=== PATIENT | female | born 1975 | race Caucasian/White ===

== ENCOUNTER 2019-06-14 07:19 | Emergency (ER) | payer BC ==
--- OUTSIDE RECORDS SUMMARY | 2019-06-14 07:29 | XMS REPORT | Continuity of Care Document ---
:1975 External Reference #:[id number] Author Name Jake Castillo M.D. (transmitted by agent of provider Nori Parra) Address [address] [place] [address] Care Team Providers Name Role Phone Obed Garcia MD - Family Medicine Care Team Information Chro Chavo Macias MD - Gastroenterology Care Team Information Chro [phone] Problems Active Problems Provider Date Status migrainosus Michael Sanders MD Onset: 07/10/2015 Migraine Michael Sanders MD Onset: 11/23/2015 Migraine without aura, not refractory Michael Sanders MD Onset: 04/21/2016 Social History Type Date Description Comments Sex Unknown Tobacco Use Start: Unknown Never Smoked Cigarettes Smoking Status Reviewed: 05/02/19 Never Smoked Cigarettes ETOH Use Rarely consumes alcohol Tobacco Use Start: Unknown Patient has never smoked Recreational Drug Use Denies Drug Use Exercise Type/Frequency Exercises rarely Allergies, Adverse Reactions, Alerts Active Allergies Reaction Severity Comments Date Biaxin Urticaria Severe 06/10/2014 Medications Active Medications SIG Qnty Indications Ordering Date Provider Voltaren apply 2 grams twice 200units Jake Castillo, 05/02/2019 1% Gel daily as needed for M.D. pain to the right wrist or medial left elbow Proair HFA 2 puffs every 4 8.500gm Sharon 02/11/2019 hours as needed MD Michael 108(90Base) mcg/Act Aerosol Humira Pen Inject One Pen 2units K51.90 Jake Castillo, 06/27/2018 40mg/0.4ML Subcutaneously Every M.D. PNKT Other Week BD 1ML for use weekly with 90units Jake Castillo 06/22/2018 Syringe/Needle/Slip sc methotrexate M.D. Tip/Subq/26G X 5/8" 26G X 5/8" 1 ML Misc Methotrexate Sodium inject 0.9 10units K51.90 Jake Castillo, 06/22/2018 (PF) milliliters M.D. 50mg/2ML subcutaneously once Solution weekly on fridays Alprazolam take 1 tablet by 14tabs K51.90 Jake Castillo, 06/20/2017 0.25mg mouth at bedtime if M.D. Tablets needed for anxiety Folic Acid take one 90tabs R70.0 Jake Castillo, 12/27/2016 1mg capsule/tablet daily M.D. Tablets by mouth Tizanidine HCL take 1 to 2 capsules 30caps K51.90 Jake Castillo, 2016 2mg by mouth AT Night If M.D. Capsules Needed For Spasms Topiramate 2 by mouth every 150tabs Michael Sanders, 11/23/2015 25mg morning and 2 by MD Tablets mouth every night Glipizide ER 1 by mouth every Unknown 2.5mg morning Tablets ER 24HR Tramadol HCL take 1 to 2 tablets 60tabs Jake Castillo, 50mg by mouth if needed M.D. Tablets for pain. max 2 tabs per day Omeprazole 1 by mouth every day Unknown 20mg Capsules DR Essential Oils as needed Unknown Vitamin D take one capsule by 14caps Jake Castillo, (Ergocalciferol) mouth once weekly M.D. [id number] Capsules Vit C qd Unknown 1000mg Duloxetine HCL 2 by mouth every day Unknown 30mg Caps DR Palomares Spironolactone 2 po qam and 3 q 30tabs Unknown 25mg evening Tablets Xyzal 1 po qd Unknown Tab Singulair 1 po qd Unknown 10mg Albuterol Sulfate Inhale via nebulizer Unknown prn History Medications Zolpidem Tartrate take 1 tablet by 7tabs Jake Castillo, 12/27/2018 - mouth at bedtime if M.D. 05/02/2019 5mg Tablets needed for insomnia (Avoid With Xanax) Ambien 1 every night at 7tabs Jake Hatchdor, 12/19/2018 - 5mg Tablets bedtime as needed M.D. 12/27/2018 for insomnia, avoid with Xanax Medications Administered in Office Medication SIG Qnty Indications Ordering Provider Date Celestone 3 mg and 3mg Obed Sims MD 05/15/2018 Injection Immunizations CPT Code Status Date Vaccine Reaction Lot # [id number] Given 06/22/2018 Pneumonia Vaccine [id number] Given 12/22/2017 Tetanus And Diptheria (Td) no immediate reaction [id number] For Adult Use Preservative noted Free [id number] Given 12/27/2016 Pneumococcal Conjugate No reaction noted [id number] Vaccine 13 Valent For Intramuscular Use Vital Signs Date Vital Result Comment 05/02/2019 2:45pm Height 68 inches 5'8" Weight 268.38 lb Heart Rate 91 /min BP Systolic 142 mmHg BP Diastolic 81 mmHg Body Temperature 98.5 F O2 % BldC Oximetry 98 % BMI (Body Mass Index) 40.8 kg/m2 01/30/2019 2:52pm Height 68 inches 5'8" Weight 265.12 lb Heart Rate 81 /min BP Systolic Sitting 122 mmHg BP Diastolic Sitting 80 mmHg Pain Level 4 O2 % BldC Oximetry 98 % BMI (Body Mass Index) 40.3 kg/m2 Results Test Date Facility Test Result H/L Range Note Laboratory test 05/02/2019 [facility] [place] Standing Orders Esr Sedimentation <pending> finding Rate CRP C-Reactive Protein <pending> CBC W/Auto Diff 05/02/2019 [facility] [place] Standing Orders White Blood Count <pending> RBC Red Blood Count <pending> Hemoglobin <pending> Hematocrit <pending> MCV (Corpuscular Volume) <pending> MCH (Corpuscular Hemoglobin) <pending> MCHC (Corpuscular Hemog Conc) <pending> RDW <pending> Platelet Count <pending> MPV <pending> Neutrophils <pending> Bands <pending> Lymphocytes <pending> Monocytes <pending> Eosinophils <pending> Basophils <pending> Absolute Basophil <pending> Absolute Eosinophil <pending> Absolute Lymphocyte <pending> Absolute Monocytes <pending> Absolute Neutrophils <pending> CMP Panel 05/02/2019 [facility] [place] Standing Orders Albumin <pending> Alt - SGPT <pending> Calcium <pending> Carbon Dioxide <pending> Chloride <pending> Creatinine <pending> Glucose Serum <pending> Alkaline Phosphatase <pending> Potassium <pending> Total Protein <pending> Sodium <pending> Ast - Sgot <pending> BUN - Urea Nitrogen <pending> Laboratory test 03/11/2019 [facility] C Reactive 9.74 mg/L High <8.[address] [place] [address] [phone] Erythrocyte Sed Rate 20 mm/Hr High 0-19 2 CBC Auto 03/11/2019 [facility] White Blood 6.6 10^3/uL Normal 3.5-10.[address] [place] [address] [phone] Red Blood Count 4.60 10^6/uL Normal 3.70-4.87 Hemoglobin 13.9 g/dL Normal 12.0-16.0 Hematocrit 41 % Normal 35-47 Mean Corpuscular Volume 89 fL Normal 80-97 Mean Corpuscular Hemoglobin 30 pg Normal 27-31 Mean Corpuscular HGB Conc 34 g/dL Normal 31-36 Red Cell Distribution Width 14 % Normal 10-15 Platelet Count 333 10^3/uL Normal 150-450 Mean Platelet Volume 7.6 fL Normal 7.4-10.4 Abs Neutrophils 2.7 10^3/uL Normal 1.5-7.7 Abs Lymphocytes 3.3 10^3/uL Normal 1.0-4.8 Abs Monocytes 0.3 10^3/uL Normal 0-0.8 Abs Eosinophils 0.2 10^3/uL Normal 0-0.6 Abs Basophils 0.0 10^3/uL Normal 0-0.2 Abs Nucleated RBC 0.0 10^3/uL Granulocyte % 41.2 % Lymphocyte % 50.5 % Monocyte % 5.3 % Eosinophil % 2.6 % Basophil % 0.4 % Nucleated Red Blood Cells % 0.1 Comp Metabolic 03/11/2019 [facility] Sodium 139 mmol/L Normal 135-[address] [place] [address] [phone] Potassium 4.4 mmol/L Normal 3.5-5.0 Chloride 103 mmol/L Normal 101-111 Co2 Carbon Dioxide 28 mmol/L Normal 22-32 Anion Gap 8 mmol/L Normal 2-11 Glucose 161 mg/dL High 70-100 Blood Urea Nitrogen 19 mg/dL Normal 6-24 Creatinine 0.78 mg/dL Normal 0.51-0.95 BUN/Creatinine Ratio 24.4 High 8-20 Calcium 9.6 mg/dL Normal 8.6-10.3 Total Protein 7.4 g/dL Normal 6.4-8.9 Albumin 4.6 g/dL Normal 3.2-5.2 Globulin 2.8 g/dL Normal 2-4 Albumin/Globulin Ratio 1.6 Normal 1-3 Total Bilirubin 0.30 mg/dL Normal 0.2-1.0 Alkaline Phosphatase 87 U/L Normal 34-104 Alt 47 U/L Normal 7-52 Ast 38 U/L Normal 13-39 Egfr Non- 79.9 >60 Egfr 96.6 >60 3 Quantiferon-TB 03/11/2019 [facility] QuantiferonTb Negative Negative [address] [place] [address] [phone] TB1 Ag minus Nil Result 0.00 IU/mL TB2 Ag minus Nil Result -0.13 IU/mL Mitogen minus Nil Result 9.31 IU/mL Nil Result 0.39 IU/mL Laboratory test 12/19/2018 [facility] Erythrocyte Sed 41 mm/Hr High 0-19 [address] [place] [address] [phone] C Reactive Protein 24.45 mg/L High <8.01 6 CBC Auto 12/19/2018 [facility] White Blood 8.7 10^3/uL Normal 3.5-10.[address] [place] [address] [phone] Red Blood Count 4.66 10^6/uL Normal 3.70-4.87 Hemoglobin 13.8 g/dL Normal 12.0-16.0 Hematocrit 40 % Normal 33-41 Mean Corpuscular Volume 86 fL Normal 80-97 Mean Corpuscular Hemoglobin 30 pg Normal 27-31 Mean Corpuscular HGB Conc 35 g/dL Normal 31-36 Red Cell Distribution Width 14 % Normal 10.5-15 Platelet Count 364 10^3/uL Normal 150-450 Mean Platelet Volume 7.3 fL Low 7.4-10.4 Abs Neutrophils 4.3 10^3/uL Normal 1.5-7.7 Abs Lymphocytes 3.5 10^3/uL Normal 1.0-4.8 Abs Monocytes 0.6 10^3/uL Normal 0-0.8 Abs Eosinophils 0.3 10^3/uL Normal 0-0.6 Abs Basophils 0 10^3/uL Normal 0-0.2 Abs Nucleated RBC 0 10^3/uL Granulocyte % 49.8 % Lymphocyte % 40.3 % Monocyte % 6.3 % Eosinophil % 3.1 % Basophil % 0.5 % Nucleated Red Blood Cells % 0.1 Comp Metabolic 12/19/2018 [facility] Sodium 138 mmol/L Normal 135-145 Panel [address] [place] [address] [phone] Potassium 3.9 mmol/L Normal 3.5-5.0 Chloride 104 mmol/L Normal 101-111 Co2 Carbon Dioxide 24 mmol/L Normal 22-32 Anion Gap 10 mmol/L Normal 2-11 Glucose 178 mg/dL High 70-100 Blood Urea Nitrogen 16 mg/dL Normal 6-24 Creatinine 0.72 mg/dL Normal 0.51-0.95 BUN/Creatinine Ratio 22.2 High 8-20 Calcium 10.1 mg/dL Normal 8.6-10.3 Total Protein 7.6 g/dL Normal 6.4-8.9 Albumin 4.6 g/dL Normal 3.2-5.2 Globulin 3.0 g/dL Normal 2-4 Albumin/Globulin Ratio 1.5 Normal 1-3 Total Bilirubin 0.30 mg/dL Normal 0.2-1.0 Alkaline Phosphatase 99 U/L Normal 34-104 Alt 49 U/L Normal 7-52 Ast 27 U/L Normal 13-39 Egfr Non- 87.6 >60 Egfr 106.0 >60 7 Laboratory 12/19/2018 [facility] TSH (Thyroid 1.75 Normal 0.34 -5.60 8 test finding [address]) mcIU/[place] [address] [phone] Thyroperoxidase AB 1.68 IU/mL Normal <9 9 Immunoglobulins 12/19/2018 [facility] Immunoglobulin G 1180 767 - 10 Serum Quant 101 mg/dL [address] [place] [address] [phone] Immunoglobulin M 91 mg/dL 37 - 286 Immunoglobulin A 326 mg/dL 61 - 356 1 Please check in late January 2019 2 Please check in late January 2019 3 Because ethnic data is not always readily available, this report includes an eGFR for both -Americans and non- Americans. The National Kidney Disease Education Program (NKDEP) does not endorse the use of the MDRD equation for patients that are not between the ages of 18 and 70, are , have extremes of body size, muscle mass, or nutritional status, or are non- or non-. According to the National Kidney Foundation, irrespective of diagnosis, the stage of the disease is based on the level of kidney function: Stage Description GFR(mL/min/1.73 m(2)) 1 Kidney damage with normal or decreased GFR 90 2 Kidney damage with mild decrease in GFR 60-89 3 Moderate decrease in GFR 30-59 4 Severe decrease in GFR 15-29 5 Kidney failure <15 (or dialysis) 4 M. tuberculosis infection NOT likely 5 Please check labs today 6 Please check labs today 7 Because ethnic data is not always readily available, this report includes an eGFR for both -Americans and non- Americans. The National Kidney Disease Education Program (NKDEP) does not endorse the use of the MDRD equation for patients that are not between the ages of 18 and 70, are , have extremes of body size, muscle mass, or nutritional status, or are non- or non-. According to the National Kidney Foundation, irrespective of diagnosis, the stage of the disease is based on the level of kidney function: Stage Description GFR(mL/min/1.73 m(2)) 1 Kidney damage with normal or decreased GFR 90 2 Kidney damage with mild decrease in GFR 60-89 3 Moderate decrease in GFR 30-59 4 Severe decrease in GFR 15-29 5 Kidney failure <15 (or dialysis) 8 Please check labs today 9 Please check labs today 10 Test Performed by: [facility] [address] [place] [address] Procedures Date Code Description Status 02/05/2019 43660 Diffusing Capacity Completed 02/05/2019 16534 Plethysmography Determination Lung Volumes & Per Completed Airway Resist 02/05/2019 21859 Pulmonary Function><Bronchodil Completed 06/25/2018 65519800 Mammogram Completed 11/22/2016 821725295 Diabetic Retinal Eye Exam Completed 11/20/2013 [id number] Mammogram Completed Medical Devices Description No Information Available Encounters Type Date Location Provider Dx Diagnosis Office Visit 01/30/2019 Rheumatology Jake Castillo K51.90 Ulcerative colitis, 2:40p [facility] unspecified, without complications Z79.899 Other retirement (current) drug therapy M79.7 Fibromyalgia Office Visit 12/19/2018 Rheumatology Jake K51.90 Ulcerative colitis, 9:20a [facility] Castillo M.D. 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 05/02/2019 M79.7 Fibromyalgia Jake Castillo M.D. 05/02/2019 M76.31 Iliotibial band syndrome, right leg Jake Castillo M.D. 02/05/2019 J45.901 Unspecified asthma with (acute) exacerbation Sharon Rodriguez MD 01/30/2019 K51.90 Ulcerative colitis, unspecified, without Jake Castillo M.D. 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 01/30/2019 M79.7 Fibromyalgia Jake Castillo M.D. 12/19/2018 K51.90 Ulcerative colitis, unspecified, without Jake Castillo M.D. complications 12/19/2018 Z79.899 Other retirement (current) drug therapy Jake Castillo M.D. 12/19/2018 M79.7 Fibromyalgia Jake Castillo M.D. 12/19/2018 D84.9 Immunodeficiency, unspecified Jake Castillo M.D. 12/19/2018 G47.00 Insomnia, unspecified Jake Castillo M.D. 11/20/2018 J45.909 Unspecified asthma, uncomplicated Sharon Rodriguez MD 11/20/2018 G47.33 Obstructive sleep apnea (adult) (pediatric) Sharon Rodriguez MD Plan of Treatment Future Appointment(s):08/05/2019 8:00 am - Jake Castillo M.D. at [facility]07/15/2019 3:00 pm - Aaliyah Couch MD at [facility]11/19/2019 3:30 pm - Sharon Rodriguez MD at [facility]05/02/2019 - Jake Castillo M.D.K51.90 Ulcerative colitis, unspecified, without [id number] Other retirement (current) drug therapyFollow up:Follow up in 3 months or sooner if mpraukL22.7 RxspsyvlcldtR42.31 Iliotibial band syndrome, right legComments:Gluteal stretch: Lie on your back with both knees bent. Rest the ankle on your injured side over theknee of your other leg. Grasp the thigh of the leg on the uninjured side and pull toward your chest.You will feel a stretch along the buttocks on the injured side and possibly along the outside of your hip. Hold the stretch for 15 to 30 seconds. Repeat 3 times.Iliotibial band stretch, standing: Crossyour uninjured leg in front of the other leg and bend down and reach toward the inside of your back foot. Do not bend your knees. Hold this position for 15 to 30 seconds. Return to the starting position. Repeat 3 times.Iliotibial band stretch, side-leaning: Stand sideways near a wall with your injuredside closest to the wall. Place a hand on the wall for support. Cross the leg farther from the wall over the other leg. Keep the foot closest to the wall flat on the floor. Lean your hips into the wall. Hold the stretch for 15 to 30 seconds. Repeat 3 times. Functional Status Description No Information Available Mental Status Description No Information Available Referrals Refer to Reason for Referral Status Appt Date Edison Dumas MD Please evaluate anxiety and insomnia and Sent some depression [address] [place] [address] [phone]
--- NOTE | 2019-06-14 07:34 | ED ---
GI/ HPI - HPI Summary HPI Summary: Pt. is a 43 y.o female who presents to the ER for dysuria, urgency and frequency that started yesterday. Notes mild suprapubic pain. Denies fever, N/V , flank pain or hematuria. Pt. took a pyridium today for pain. Past hx of UC and currently on DMARD. Sxs are mild in severity. No current modifying factors. - History of Current Complaint Chief Complaint: EDUrogenitalProblems Time Seen by Provider: 06/14/19 07:31 Stated Complaint: POSS UTI PER PT Hx Obtained From: Patient Hx Last Menstrual Period: iud Pain Intensity: 3 - Additional Pertinent History Primary Care Physician: [id number] - Allergy/Home Medications Allergies/Adverse Reactions: Allergies Allergy/AdvReac Type Severity Reaction Status Date / Time clarithromycin [From Biaxin] Allergy Hives Verified 06/14/19 07:43 PMH/Surg Hx/FS Hx/Imm Hx Previously Healthy: Yes Endocrine/Hematology History: Denies: Hx Diabetes, Hx Thyroid Disease Cardiovascular History: Denies: Hx Hypertension, Hx Pacemaker/ICD Respiratory History: Reports: Hx Asthma Denies: Hx Chronic Obstructive Pulmonary Disease (COPD) GI History: Denies: Hx Ulcer Musculoskeletal History: Reports: Hx Arthritis - OA, Hx Bursitis - R (Trochanter ) Sensory History: Reports: Hx Contacts or Glasses, Hx Eye Injury - Sx detatched retina repair Denies: Hx Hearing Aid, Other Sensory Impairments Opthamlomology History: Reports: Hx Contacts or Glasses, Hx Eye Injury - Sx detatched retina repair Denies: Other Sensory Impairments Psychiatric History: Reports: Hx Anxiety, Hx Depression Denies: Hx Panic Disorder - Cancer History Hx Chemotherapy: No Hx Radiation Therapy: No - Surgical History Surgery Procedure, Year, and Place: surgery for detatched retna; silicone buckle. hernia surg. foot surg. ear tubes. tonsilectomy. pin placement left elbow Hx Anesthesia Reactions: No Infectious Disease History: No Infectious Disease History: Denies: Hx Clostridium Difficile, Hx Hepatitis, Hx Human Immunodeficiency Virus (HIV), Hx of Known/Suspected MRSA, Hx Shingles, Hx Tuberculosis, Hx Known/ Suspected VRE, Hx Known/Suspected VRSA, History Other Infectious Disease, Traveled Outside the [place] in Last 30 Days - Family History Known Family History: Positive: Cardiac Disease, Hypertension, Diabetes, Non- Contributory Family History: Dyslipidemia - Social History Occupation: Employed Full-time Lives: With Family Alcohol Use: None Substance Use Type: Reports: None Smoking Status (MU): Never Smoked Tobacco Have You Smoked in the Last Year: No Review of Systems Constitutional: Negative Negative: Fever Gastrointestinal: Negative Positive: dysuria All Other Systems Reviewed And Are Negative: Yes Physical Exam Triage Information Reviewed: Yes Vital Signs On Initial Exam: Initial Vitals Temp Pulse Resp BP Pulse Ox 97.1 F 92 16 139/94 98 06/14/19 07:23 06/14/19 07:23 06/14/19 07:23 06/14/19 07:23 06/14/19 07:23 Vital Signs Reviewed: Yes Appearance: Positive: Well-Appearing - Pt. sitting up in bed in NAD. Pleasant. Skin: Positive: Warm, Dry Head/Face: Positive: Normal Head/Face Inspection Eyes: Positive: Normal, EOMI Neck: Positive: Supple Respiratory/Lung Sounds: Positive: Clear to Auscultation, Breath Sounds Present Cardiovascular: Positive: Normal, RRR Abdomen Description: Positive: Nontender, Soft. Negative: CVA Tenderness (R), CVA Tenderness (L) Neurological: Positive: Normal, CN Intact II-III Psychiatric: Positive: Affect/Mood Appropriate Procedures - Sedation Patient Received Moderate/Deep Sedation with Procedure: No Diagnostics - Vital Signs Vital Signs Temp Pulse Resp BP Pulse Ox 06/14/19 07:23 97.1 F 92 16 139/94 98 - Laboratory Lab Statement: Any lab studies that have been ordered have been reviewed, and results considered in the medical decision making process. GIGU Course/Dx - Course Course Of Treatment: Pt. presenting with urinary sxs. Afebrile. U/A is cannot fully be completed secondary to RBCs but does show bacteria and WBCs, pending culture. Will tx pt. with bactrim. To fu with pcp. Increase fluids. Pyridium rx. Pt. to return to ER for fever, vomiting, flank pain. Pt. understands and agrees with plan. - Diagnoses Differential Diagnoses - Female: Urinary Tract Infection, Ureteral Calculi Provider Diagnoses: UTI (urinary tract infection) Discharge ED - Sign-Out/Discharge Documenting (check all that apply): Patient Departure - Discharge Plan Condition: Good Disposition: HOME Prescriptions: Phenazopyridine TAB* [Pyridium 100 mg TAB*] 100 mg PO TID #9 tab Sulfamethox/Trimethoprim DS* [Bactrim DS 800/160 TAB*] 1 tab PO BID #20 tab Patient Education Materials: Urinary Tract Infection in Women (ED) Referrals: Obed Garcia MD [Primary Care Provider] - Additional Instructions: Follow up with PCP in one week if symptoms persist Take antibiotic as directed Increase fluids Tylenol for pain as directed Return to ER for fever, vomiting, flank pain, or if concerned - Billing Disposition and Condition Condition: GOOD Disposition: Home
[2019-06-14 08:27] LABS: Urine Bacteria 2+ (Absent); Urine Red Blood Cell Absent (Absent); Urine Squamous Epithelial Cell Present (Absent); Urine White Blood Cell 3+(>20/hpf) (Absent)
[2019-06-14 08:45] LABS: Urine Appearance Cloudy; Urine Color Orange; Urine Specific Gravity 1.022 (1.010-1.030)
[2019-06-14] MEDS ORDERED: Sulfamethox/Trimethoprim DS 800/160* TAB PO ONE (08:54)
[2019-06-14 09:32] VITALS: BP 140/80
--- NOTE | 2019-06-17 06:04 | ED ---
Imaging and Labs Follow Up Follow Up Type: Labs/Cultures Labs/Culture Result: URINE CULTURE FINAL grew Escherichia coli Patient Communication/Plan: Patient was placed on Bactrim prior to discharge Other Patient Communication/Plan: Nothing further at this time, Bactrim sensitive to organism Provider Diagnoses: UTI (urinary tract infection)
== END 2019-06-14 09:31 | disposition home or self-care (01) ==
LOC: ED 07:19
DX: N39.0 Urinary tract infection, site not specified (principal); J45.909 Unspecified asthma, uncomplicated; F41.9 Anxiety disorder, unspecified; F32.9 Major depressive disorder, single episode, unspecified; Z88.1 Allergy status to other antibiotic agents
CPT/HCPCS: 81003; 81015; 87077; 87086; 87186; 99282

== ENCOUNTER 2019-11-23 15:44 | Emergency (ER) | payer BC, OTHER ==
--- OUTSIDE RECORDS SUMMARY | 2019-11-23 16:26 | XMS REPORT | Continuity of Care Document ---
:1975 External Reference #:[id number] Author Name Jake Castillo M.D. (transmitted by agent of provider Hilda Valerio) Address [address] [place] [address] Care Team Providers Name Role Phone Obed Garcia MD - Family Medicine Care Team Information Sat Tutor Chavo Macias MD - Gastroenterology Care Team Information Sat Tutor Problems Active Problems Provider Date Status migrainosus Michael Sanders MD Onset: 07/10/2015 Migraine Michael Sanders MD Onset: 11/23/2015 Migraine without aura, not refractory Michael Sanders MD Onset: 04/21/2016 Social History Type Date Description Comments Sex Unknown Tobacco Use Start: Unknown Never Smoked Cigarettes Smoking Status Reviewed: 11/04/19 Never Smoked Cigarettes ETOH Use Rarely consumes alcohol Tobacco Use Start: Unknown Patient has never smoked Recreational Drug Use Denies Drug Use Exercise Type/Frequency Exercises rarely Allergies, Adverse Reactions, Alerts Active Allergies Reaction Severity Comments Date Biaxin Urticaria Severe 06/10/2014 Medications Active Medications SIG Qnty Indications Ordering Date Provider Hydroxychloroquine Take 1 Tablet By 180tabs M06.4 Jake Sulfate Mouth Every Day For Isabelle Castillo 0 200mg Tablets 1 Week Then 2 Tablets Daily Ongoing Voltaren apply 2 grams twice 200units Jake 1% Gel daily as needed for Isabelle Castillo 9 pain to the right wrist or medial left elbow Proair HFA 2 puffs every 4 8.500gm Sharon 108(90Base) hours as needed MD iMchael 9 mcg/Act Aerosol Humira Pen Inject 1 Pen Under 2units K51. Allen 40mg/0.4ML PNKT The Skin Every 14 Isabelle Castillo 8 Days. BD 1ML for use weekly with 90units Allen Syringe/Needle/Slip sc methotrexate Isabelle Castillo 8 Tip/Subq/26G X 5/8" 26G X 5/8" 1 ML Misc Methotrexate Sodium Inject 0.9 10units 1. Allen (PF) Milliliters Isabelle Castillo 8 50mg/2ML Solution Subcutaneously Once Weekly On Monday Alprazolam Take 1 Tablet By 14tabs K51. Allen 0.25mg Tablets Mouth AT Bedtime as Isabelle Castillo 7 Needed For Anxiety. Maximum Daily Dose Is 1 Folic Acid take one 90tabs R70.0 Jake 1mg Tablets capsule/tablet Isabelle Castillo 7 daily by mouth Tizanidine HCL Take 1 To 2 30caps K51. Allen 2mg Capsules Capsules By Mouth Isabelle Castillo 7 AT Night For Spasms as Needed Prednisone Take 4 Tabs Daily X Unknown 10mg Tablets 3 Days. 3 Tabs 0 Daily X 3 Days. 2 Tabs Daily X 3 Days. Then One Tablet Daily For 3 Days Amoxicillin/Clavulanate TK 1 T PO bid For Unknown Potassium 10 Days 0 875-125mg Tablets Topiramate one capsule every Unknown 25mg Caps am and two capsules 0 Sprinkle every pm Glipizide ER 1 by mouth every Unknown 2.5mg Tablets morning 0 ER 24HR Tramadol HCL Take 1 Tablet By 60tabs Allen 50mg Tablets Mouth Twice Daily Isabelle Castillo 0 as Needed For Pain Maximum Daily Dose Is 2 Omeprazole 1 by mouth every Unknown 20mg Capsules DR day 0 Essential Oils as needed Unknown 0 Vitamin D take one capsule by 14caps Allen (Ergocalciferol) mouth once weekly Isabelle Castillo 0 [id number] Capsules Vit C qd Unknown 1000mg 0 Duloxetine HCL 2 by mouth every Unknown 30mg Caps DR day 0 Part Spironolactone 2 po qam and 3 q 30tabs Unknown 25mg Tablets evening 0 Xyzal 1 po qd Unknown Tab 0 Singulair 1 po qd Unknown 10mg 0 Albuterol Sulfate Inhale via Unknown nebulizer prn 0 History Medications Plaquenil 1 by mouth every 30tabs M06.4 Jake Castillo, 11/04/2019 - 200mg day for 1 week M.D. 11/04/2019 Tablets then 2 by mouth daily ongoing Medications Administered in Office Medication SIG Qnty Indications Ordering Provider Date Celestone 3 mg and 3mg Obed Sims MD 05/15/2018 Injection Immunizations CPT Code Status Date Vaccine Reaction Lot # [id number] Given 06/22/2018 Pneumonia Vaccine [id number] Given 12/22/2017 Tetanus And Diptheria (Td) no immediate reaction [id number] For Adult Use Preservative noted Free 58070 Given 12/27/2016 Pneumococcal Conjugate No reaction noted [id number] Vaccine 13 Valent For Intramuscular Use Vital Signs Date Vital Result Comment 11/04/2019 4:31pm Height 68 inches 5'8" Weight 272.12 lb Heart Rate 97 /min BP Systolic Sitting 144 mmHg BP Diastolic Sitting 93 mmHg Body Temperature 97.8 F Pain Level 6 O2 % BldC Oximetry 98 % BMI (Body Mass Index) 41.4 kg/m2 08/15/2019 8:38am Height 68 inches 5'8" Weight 271.00 lb Heart Rate 75 /min BP Systolic 134 mmHg BP Diastolic 87 mmHg O2 % BldC Oximetry 97 % BMI (Body Mass Index) 41.2 kg/m2 Results Test Acquired Date Facility Test Result H/L Range Note Laboratory test 09/04/2019 [facility] Erythrocyte Sed 25 mm/Hr High 0-[address] Rate [place], [place] [address] [phone] C Reactive Protein 11.57 mg/L High <8.01 1 CBC W/Auto 09/04/2019 [facility] White Blood 7.4 10^3/uL Normal 3.5-10.[address] Count [place], [place] [address] [phone] Red Blood Count 4.61 10^6/uL Normal 3.70-4.87 Hemoglobin 13.6 g/dL Normal 12.0-16.0 Hematocrit 40 % Normal 35-47 Mean Corpuscular Volume 87 fL Normal 80-97 Mean Corpuscular Hemoglobin 30 pg Normal 27-31 Mean Corpuscular HGB Conc 34 g/dL Normal 31-36 Red Cell Distribution Width 14 % Normal 10-15 Platelet Count 312 10^3/uL Normal 150-450 Mean Platelet Volume 7.5 fL Normal 7.4-10.4 Abs Neutrophils 3.1 10^3/uL Normal 1.5-7.7 Abs Lymphocytes 3.6 10^3/uL Normal 1.0-4.8 Abs Monocytes 0.5 10^3/uL Normal 0-0.8 Abs Eosinophils 0.2 10^3/uL Normal 0-0.6 Abs Basophils 0.0 10^3/uL Normal 0-0.2 Abs Nucleated RBC 0.0 10^3/uL Granulocyte % 41.6 % Lymphocyte % 48.8 % Monocyte % 6.2 % Eosinophil % 2.8 % Basophil % 0.6 % Nucleated Red Blood Cells % 0.1 CMP Panel 09/04/2019 [facility] Sodium 140 mmol/L Normal 135- [address] [place] [address] [phone] Potassium 4.2 mmol/L Normal 3.5-5.0 Chloride 104 mmol/L Normal 101-111 Co2 Carbon Dioxide 26 mmol/L Normal 22-32 Anion Gap 10 mmol/L Normal 2-11 Glucose 152 mg/dL High 70-100 Blood Urea Nitrogen 20 mg/dL Normal 6-24 Creatinine 0.75 mg/dL Normal 0.51-0.95 BUN/Creatinine Ratio 26.7 High 8-20 Calcium 9.7 mg/dL Normal 8.6-10.3 Total Protein 7.3 g/dL Normal 6.4-8.9 Albumin 4.4 g/dL Normal 3.2-5.2 Globulin 2.9 g/dL Normal 2-4 Albumin/Globulin Ratio 1.5 Normal 1-3 Total Bilirubin 0.30 mg/dL Normal 0.2-1.0 Alkaline Phosphatase 85 U/L Normal 34-104 Alt 47 U/L Normal 7-52 Ast 27 U/L Normal 13-39 Egfr Non- 83.6 >60 Egfr 101.1 >60 2 Laboratory test 09/04/2019 [facility] Hemoglobin A1c 7.3 % High 4.0-5.6 [address] (Glyco HGB) [place] [address] [phone] Vitamin D Total 25(Oh) 29.5 ng/mL Normal 20-50 4 Urine Culture And 07/15/2019 [facility] Urine Culture SEE RESULT [address] [place] [address] [phone] Laboratory test 07/15/2019 [facility] In House Test negative finding Urine GC/Chlamydia 07/15/2019 [facility] GCCHL Disclaimer (SEE NOTE) 6 Amplified Rna [address] [place] [address] [phone] Chlamydia trachomatis Maria Teresa Negative Negative Neisseria gonorrhoeae (GC) Maria Teresa Negative Negative Order 07/15/2019 [facility] IUD-Mirena <pending> [address] [place] [address] [phone] Comp Metabolic 06/13/2019 [facility] Sodium 138 mmol/L Normal 135-[address] [place] [address] [phone] Potassium 4.3 mmol/L Normal 3.5-5.0 Chloride 102 mmol/L Normal 101-111 Co2 Carbon Dioxide 27 mmol/L Normal 22-32 Anion Gap 9 mmol/L Normal 2-11 Glucose 161 mg/dL High 70-100 Blood Urea Nitrogen 22 mg/dL Normal 6-24 Creatinine 0.87 mg/dL Normal 0.51-0.95 BUN/Creatinine Ratio 25.3 High 8-20 Calcium 9.8 mg/dL Normal 8.6-10.3 Total Protein 7.7 g/dL Normal 6.4-8.9 Albumin 4.6 g/dL Normal 3.2-5.2 Globulin 3.1 g/dL Normal 2-4 Albumin/Globulin Ratio 1.5 Normal 1-3 Total Bilirubin 0.30 mg/dL Normal 0.2-1.0 Alkaline Phosphatase 90 U/L Normal 34-104 Alt 32 U/L Normal 7-52 Ast 21 U/L Normal 13-39 Egfr Non- 70.4 >60 Egfr 85.2 >60 7 Laboratory test 06/13/2019 [facility] C Reactive 11.00 High < 8.01 [address] Protein mg/[place] [address] [phone] CBC Auto Diff 06/13/2019 [facility] White Blood 7.7 Normal 3.5 -10.[address] Count 10^3/[place] [address] [phone] Red Blood Count 4.67 10^6/uL Normal 3.70-4.87 Hemoglobin 13.8 g/dL Normal 12.0-16.0 Hematocrit 41 % Normal 35-47 Mean Corpuscular Volume 87 fL Normal 80-97 Mean Corpuscular Hemoglobin 30 pg Normal 27-31 Mean Corpuscular HGB Conc 34 g/dL Normal 31-36 Red Cell Distribution Width 14 % Normal 10-15 Platelet Count 339 10^3/uL Normal 150-450 Mean Platelet Volume 7.3 fL Low 7.4-10.4 Abs Neutrophils 4.0 10^3/uL Normal 1.5-7.7 Abs Lymphocytes 3.1 10^3/uL Normal 1.0-4.8 Abs Monocytes 0.4 10^3/uL Normal 0-0.8 Abs Eosinophils 0.2 10^3/uL Normal 0-0.6 Abs Basophils 0.0 10^3/uL Normal 0-0.2 Abs Nucleated RBC 0.0 10^3/uL Granulocyte % 52.0 % Lymphocyte % 39.4 % Monocyte % 5.8 % Eosinophil % 2.3 % Basophil % 0.5 % Nucleated Red Blood Cells % 0.1 Laboratory test 06/13/2019 [facility] Erythrocyte Sed 21 mm/Hr High 0-[address] [place] [address] [phone] 1 FASTING 2 Because ethnic data is not always readily [...] 15-29 5 Kidney failure <15 (or dialysis) 3 Therapeutic target for the treatment of diabetes mellitus patients is <7% HBA1C, and in selective patients <6.0%. Please refer to [place] [employer] diabetic care guidelines for further information. 4 Total 25-Hydroxyvitamin D2 and D3 (25-OH-VitD) <10 ng/mL (severe deficiency) 10-19 ng/mL (mild to moderate deficiency) 20-50 ng/mL (optimum levels) 51-80 ng/mL (increased risk of hypercalciuria) >80 ng/mL (toxicity possible) 5 SEE RESULT BELOW Name: LARA HICKMAN : [address]: Aaliyah Couch MD Acct: [id number] Unit: [id number] AGE: 43 Location: [facility] Re07/15/19 SEX: F Status: REG REF SPEC: [id number] SERA: 07/15/19-[address]: Aaliyah Couch MD REQ: [id number] RECD: 07/15/19 STATUS:COMP _ SOURCE: URINE SPDESC: ORDERED: Urine Culture COMMENTS: clean catch test of cure [id number] Urine Source: Clean Catch Procedure Result Reported Site Urine Culture Final 07/16/19- 1615 ML No growth of clinically significant organisms * ML - Main Lab . END OF REPORT DEPARTMENT OF PATHOLOGY, [address] [place] [address] Nghia Medrano M.D. Director [facility] # [id number] 6 As with all diagnostic procedures, the laboratory results obtained should be used in conjunction with other clinical information available to the physician, including confirmation by another method, as applicable. 7 Because ethnic data is not always [...] 5 Kidney failure <15 (or dialysis) 8 FASTING Procedures Date Code Description Status 08/06/2019 408586764 Diabetic Retinal Eye Exam Completed 07/15/2019 20826 Remove Intrauterine Device Completed 07/15/2019 63650 Insert Intrauterine Device Completed 07/12/2019 [id number] Mammogram Completed 09/06/2018 462736728 Diabetic Retinal Eye Exam Completed 09/03/2018 793791385 Diabetic Retinal Eye Exam Completed 06/25/2018 [id number] Mammogram Completed 11/22/2016 [id number] Diabetic Retinal Eye Exam Completed 11/20/2013 54774509 Mammogram Completed Medical Devices Description No Information Available Encounters Type Date Location Provider Dx Diagnosis Office Visit 11/04/2019 Rheumatology Jake Castillo, M06.4 Inflammatory 4:40p [facility] polyarthropathy K51.90 Ulcerative colitis, unspecified, without complications Z79.899 Other termite exterminator (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) drug 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 E55.9 Vitamin D deficiency, unspecified Office Visit 08/15/2019 [facility] Marlene Weber, Z30.431 Encounter for 8:40a [facility] routine checking of intrauterine contracep dev Office Visit 08/05/2019 Rheumatology Jake M06.4 Inflammatory 8:00a [facility] Castillo polyarthjohn Walton K51.90 Ulcerative colitis, unspecified, without complications Z79.899 Other prison (current) drug therapy M79.7 Fibromyalgia R73.9 Hyperglycemia, unspecified E55.9 Vitamin D deficiency, unspecified Assessments Date Code Description Provider 11/04/2019 M06.4 Inflammatory polyarthropathy Jake Castillo M.D. 11/04/2019 K51.90 Ulcerative colitis, unspecified, without Jake Castillo M.D. complications 11/04/2019 Z79.899 Other termite exterminator (current) drug therapy Jake Castillo M.D. 11/04/2019 E55.9 Vitamin D deficiency, unspecified Jake Castillo M.D. 08/15/2019 Z30.431 Encounter for routine checking of intrauterine Marlenealexander Weber , N.P. contraceptive device 08/05/2019 M06.4 Inflammatory polyarthropathy Jake Castillo M.D. 08/05/2019 K51.90 Ulcerative colitis, unspecified, without Jake Castillo M.D. complications 08/05/2019 Z79.899 Other prison (current) drug therapy Jake Castillo M.D. 08/05/2019 M79.7 Fibromyalgia Jake Castillo M.D. 08/05/2019 R73.9 Hyperglycemia, unspecified Jake Castillo M.D. 08/05/2019 E55.9 Vitamin D deficiency, unspecified Jake Castillo M.D. 07/15/2019 Z30.433 Encounter for removal and reinsertion of Aaliyah Couch MD intrauterine contraceptive device 07/15/2019 Z87.440 Personal history of urinary (tract) infections Aaliyah Couch MD 07/15/2019 Z32.02 Encounter for test, result negative Aaliyah Couch MD Plan of Treatment Future Appointment(s):02/11/2020 3:40 pm - Jake Castillo M.D. at [facility]11/19/2019 3:30 pm - Sharon Rodriguez MD at [facility]11/04/2019 - Jake Castillo M.D.M06.4 Inflammatory polyarthropathyNew Medication:Hydroxychloroquine Sulfate 200 mg - Take 1 Tablet By Mouth Every Day For 1 Week Then 2 Tablets DailyOngoingPlaquenil 200 mg - 1 by mouth every day for 1 week then 2 by mouth daily ongoingFollow up:Follow up in 2 months or sooner if civqdiE75.90 Ulcerative colitis, unspecified, without tjzslvxgasimnA82.899 Other termite exterminator (current) drug therapyReferral:Jake Hernández MD, RorwmpzqbqvifC89.9 Vitamin D deficiency, unspecified Functional Status Description No Information Available Mental Status Description No Information Available Referrals Refer to Dr Reason for Referral Status Appt Date Jake Hernández MD Please monitor for Plaquenil toxicity Created [address] [place] [address] [phone]
--- OUTSIDE RECORDS SUMMARY | 2019-11-23 16:26 | XMS REPORT | Continuity of Care Document ---
:1975 External Reference #:[id number] Author Name Jake Castillo M.D. (transmitted by agent of provider Nori Parra) Address [address] [place] [address] Care Team Providers Name Role Phone Obed Garcia MD - Family Medicine Care Team Information Magazine Publisher Chavo Macias MD - Gastroenterology Care Team Information Magazine Publisher [phone] Problems Active Problems Provider Date Status migrainosus [...] Medications SIG Qnty Indications Ordering Date Provider Plaquenil 1 by mouth every day 30tabs M06.4 Jake Castillo, 11/04/2019 200mg for 1 week then 2 by M.D. Tablets mouth daily ongoing Voltaren apply 2 grams twice 200units Jake Castillo, 05/02/2019 1% Gel daily as needed for M.D. pain to the right wrist or medial left elbow Proair HFA 2 puffs every 4 8.500gm Sharon 02/11/2019 hours as needed MD Michael 108(90Base) mcg/Act Aerosol Humira Pen Inject 1 Pen Under 2units K51.90 Jake Castillo, 06/27/2018 40mg/0.4ML The Skin Every 14 M.D. PNKT Days. BD 1ML for use weekly with 90units Jake Castillo, 06/22/2018 Syringe/Needle/Slip sc methotrexate M.D. Tip/Subq/26G X 5/8" 26G X 5/8" 1 ML Misc Methotrexate Sodium Inject 0.9 10units 1.90 Jake Castillo, 06/22/2018 (PF) Milliliters M.D. 50mg/2ML Subcutaneously Once Solution Weekly On Monday Alprazolam Take 1 Tablet By 14tabs K51.90 Jake Castillo, 06/20/2017 0.25mg Mouth AT Bedtime as M.D. Tablets Needed For Anxiety. Maximum Daily Dose Is 1 Folic Acid take one 90tabs R70.0 Jake Castillo, 12/27/2016 1mg capsule/tablet daily M.D. Tablets by mouth Tizanidine HCL Take 1 To 2 Capsules 30caps K51.90 Jake Castillo, 2016 2mg By Mouth AT Night M.D. Capsules For Spasms as Needed Prednisone Take 4 Tabs Daily X Unknown 10mg 3 Days. 3 Tabs Daily Tablets X 3 Days. 2 Tabs Daily X 3 Days. Then One Tablet Daily For 3 Days Amoxicillin/Clavulan TK 1 T PO bid For 10 Unknown ate Potassium Days 875-125mg Tablets Topiramate one capsule every am Unknown 25mg Caps and two capsules Sprinkle every pm Glipizide ER 1 by mouth every Unknown 2.5mg morning Tablets ER 24HR Tramadol HCL Take 1 Tablet By 60tabs Jake Castillo, 50mg Mouth Twice Daily as M.D. Tablets Needed For Pain Maximum Daily Dose Is 2 Omeprazole 1 by mouth every day Unknown 20mg Capsules DR Essential Oils as needed Unknown Vitamin D take one capsule by 14caps Jake Castillo, (Ergocalciferol) mouth once weekly M.D. [id number] Capsules Vit C qd Unknown 1000mg Duloxetine HCL 2 by mouth every day Unknown 30mg Caps DR Palomares Spironolactone 2 po qam and 3 q 30tabs Unknown 25mg evening Tablets Xyzal 1 po qd Unknown Tab Singulair 1 po qd Unknown 10mg Albuterol Sulfate Inhale via nebulizer Unknown prn Medications Administered in Office Medication SIG Qnty Indications Ordering Provider Date Celestone 3 mg and 3mg Obed Sims MD 05/15/2018 Injection Immunizations CPT Code Status Date Vaccine Reaction Lot # 11645 Given 06/22/2018 Pneumonia Vaccine [id number] 86976 Given 12/22/2017 Tetanus And Diptheria (Td) no immediate reaction a103a For Adult Use Preservative noted Free 00643 Given 12/27/2016 Pneumococcal Conjugate No reaction noted [id number] Vaccine 13 Valent For Intramuscular Use Vital [...] Result H/L Range Note Laboratory test 09/04/2019 [facility] Erythrocyte Sed 25 mm/Hr High 0-[address] [place] [address] [phone] C Reactive Protein 11.57 mg/L High <8.01 1 CBC W/Auto 09/04/2019 [facility] White Blood 7.4 10^3/uL Normal 3.5-10.[address] Count [place], [place] [address] [phone] Red Blood Count 4.61 10^6/uL Normal 3.70-4.87 [...] Blood Cells % 0.1 CMP Panel 09/04/2019 [facility] Sodium 140 mmol/L Normal 135- [address] [place] [address] [phone] Potassium 4.2 mmol/L Normal 3.5-5.0 Chloride 104 [...] Egfr 101.1 >60 2 Laboratory test 09/04/2019 [facility] Hemoglobin A1c 7.3 % High 4.0-5.6 [address] (Glyco HGB) [place] [address] [phone] Vitamin D Total 25(Oh) 29.5 ng/mL Normal 20-50 4 Urine Culture And 07/15/2019 [facility] Urine Culture SEE RESULT [address] [place] [address] [phone] Laboratory test 07/15/2019 [facility] Cor[facility] In House Test negative finding Urine GC/Chlamydia 07/15/2019 [facility] GCCHL Disclaimer (SEE NOTE) 6 Amplified Rna [address] [place] [address] [phone] Chlamydia trachomatis Maria Teresa Negative Negative Neisseria gonorrhoeae (GC) Maria Teresa Negative Negative Order 07/15/2019 [facility] IUD-Mirena <pending> [address] [place] [address] [phone] Comp Metabolic 06/13/2019 [facility] Sodium 138 mmol/L Normal 135-[address] [place] [address] [phone] Potassium 4.3 mmol/L Normal 3.5-5.0 Chloride 102 [...] Egfr 85.2 >60 7 Laboratory test 06/13/2019 [facility] C Reactive 11.00 High < 8.01 [address] Protein mg/[place] [address] [phone] CBC Auto Diff 06/13/2019 [facility] White Blood 7.7 Normal 3.5 -10.[address] Count 10^3/[place] [address] [phone] Red Blood Count 4.67 10^6/uL Normal 3.70-4.87 [...] Blood Cells % 0.1 Laboratory test 06/13/2019 [facility] Erythrocyte Sed 21 mm/Hr High 0-[address] [place] [address] [phone] 1 FASTING 2 Because ethnic data is [...] in selective patients <6.0%. Please refer to [place] [employer] diabetic care guidelines for further information. 4 Total 25-Hydroxyvitamin D2 and D3 (25-OH-VitD) <10 ng/mL (severe deficiency) 10-19 ng/mL (mild to moderate deficiency) 20-50 ng/mL (optimum levels) 51-80 ng/mL (increased risk of hypercalciuria) >80 ng/mL (toxicity possible) 5 SEE RESULT BELOW Name: LARA HICKMAN : [address]: Aaliyah Couch MD Acct: [id number] Unit: [id number] AGE: 43 Location: [facility] Re07/15/19 SEX: F Status: REG REF SPEC: [id number] SERA: 07/15/[address] [facility] [address]: Aaliyah Couch MD REQ: [id number] RECD: 07/15/19 STATUS:COMP _ SOURCE: URINE SPDESC: ORDERED: Urine Culture COMMENTS: clean catch test of cure [id number] Urine Source: Clean Catch Procedure Result Reported Site Urine Culture Final 07/16/19- 1615 ML No growth of clinically significant organisms * ML - Main Lab . END OF REPORT DEPARTMENT OF PATHOLOGY, [address] [place] [address] Nghia Medrano M.D. Director [facility] # [id number] 6 As with all diagnostic procedures, the [...] FASTING Procedures Date Code Description Status 08/06/2019 [id number] Diabetic Retinal Eye Exam Completed 07/15/2019 21592 Remove Intrauterine Device Completed 07/15/2019 89486 Insert Intrauterine Device Completed 07/12/2019 [id number] Mammogram Completed 09/06/2018 688802591 Diabetic Retinal Eye Exam Completed 09/03/2018 [id number] Diabetic Retinal Eye Exam Completed 06/25/2018 [id number] Mammogram Completed 11/22/2016 649421671 Diabetic Retinal Eye Exam Completed 11/20/2013 [id number] Mammogram Completed Medical Devices Description No Information Available Encounters Type Date Location Provider Dx Diagnosis Office Visit 11/04/2019 Rheumatology Shy Celis6.4 Inflammatory 4:40p [facility] polyarthropathy K51.90 Ulcerative colitis, unspecified, without complications Z79.899 Other fpc (current) drug therapy E55.9 Vitamin D deficiency, unspecified Office Visit 08/15/2019 [facility] Marlene Weber Z30.431 Encounter for 8:40a [facility] routine checking of intrauterine contracep dev Office Visit 08/05/2019 Rheumatology Jake M06.4 Inflammatory 8:00a [facility] Martins M.D. K51.90 Ulcerative colitis, unspecified, without complications Z79.899 Other fpc (current) drug therapy M79.7 Fibromyalgia R73.9 Hyperglycemia, unspecified E55.9 Vitamin D deficiency, unspecified Assessments Date Code Description Provider 11/04/2019 M06.Bonnie Inflammatory polyarthropathy Jake Castillo M.D. 11/04/2019 K51.90 Ulcerative colitis, unspecified, without Jake Castillo M.D. complications 11/04/2019 Z79.899 Other termite treater helper (current) drug therapy Jake Castillo M.D. 11/04/2019 E55.9 Vitamin D deficiency, unspecified Jake Castillo M.D. 08/15/2019 Z30.431 Encounter for routine checking of intrauterine Marlene Weber N.P. contraceptive device 08/05/2019 M06.Bonnie Inflammatory polyarthropathy Jake Castillo M.D. 08/05/2019 K51.90 Ulcerative colitis, unspecified, without Jake Castillo M.D. complications 08/05/2019 Z79.899 Other fpc (current) drug therapy Jake Castillo M.D. 08/05/2019 [...] Aaliyah Couch MD Plan of Treatment Future Appointment(s):11/19/2019 3:30 pm - Sharon Rodriguez MD at [facility]11/04/2019 - Jake Castillo M.D.M06.4 Inflammatory polyarthropathyNew Medication:Plaquenil 200 mg - 1 by mouth every day for 1 week then 2 by mouth daily ongoingNew Labs:Erythrocyte Sed Rate, Ordered: C Reactive Protein, Ordered: 11/04/19K51.90 Ulcerative colitis, unspecified, without vdxexdlnrihjfB50.899 Other termite treater helper (current) drug therapyNew Labs:CBC Auto Diff, Ordered: 11/04/19Comp Metabolic Panel, Ordered: 11/04/19Vitamin D Total 25(Oh), Ordered: 11/04/19Referral:Jake Hernández MD, TcsktcjpmzcwtE09.9 Vitamin D deficiency, unspecified Functional Status Description No Information Available Mental Status Description No Information Available Referrals Refer to Reason for Referral Status Appt Date Jake Hernández MD Please monitor for Plaquenil toxicity Created [address] [place] [address] [phone]
[2019-11-23 17:05] VITALS: BP 143/85
--- NOTE | 2019-11-23 17:11 | UC ---
Throat Pain/Nasal [place] HPI - HPI Summary HPI Summary: 43-year-old female comes in with a chief complaint of one day of headache mild rhinorrhea and minimal sore throat cough shortness of breath. Patient's on methotrexate and is therefore potentially immunocompromised. Patient reports she never has any fevers. No known contact with covid 19 patient. Chest feels tight in her thoracic back. She has used albuterol inhaler which did help some with the breathing. - History of Current Complaint Chief Complaint: UCRespiratory Stated Complaint: COUGH Time Seen by Provider: 11/23/19 16:26 Hx Last Menstrual Period: IUD in place Pain Intensity: 3 - Allergies/Home Medications Allergies/Adverse Reactions: Allergies Allergy/AdvReac Type Severity Reaction Status Date / Time clarithromycin [From Biaxin] Allergy Hives Verified 11/23/19 16:29 Home Medications: Home Medications Montelukast Sodium TAB* [Singulair 10 MG TAB*] 5 mg PO BEDTIME 06/06/12 [ History Confirmed 11/23/19] DULoxetine DR CAP* [Cymbalta CAP*] 50 mg PO BEDTIME 11/07/14 [History Confirmed 11/23/19] Spironolactone TAB* [Aldactone TAB 25 MG*] 50 mg PO DAILY 12/24/14 [History Confirmed 11/23/19] Omeprazole CAP (NF) [Prilosec CAP* 20 MG] 20 mg PO BEDTIME 06/09/15 [History Confirmed 11/23/19] Albuterol HFA INHALER* [Ventolin HFA Inhaler*] 2 puff INH Q4H PRN 09/04/15 [ History Confirmed 11/23/19] Folic Acid TAB* [Folvite TAB*] 1 mg PO BEDTIME 01/29/16 [History Confirmed 11/22] Adalimumab [Humira] 40 mg SC .Q 2WEEKS 03/22/17 [History Confirmed 11/23/19] Ascorbic Acid TAB* [Vitamin C TAB*] 500 mg PO DAILY 03/22/17 [History Confirmed 11/23/19] Essential Oils* 1 applic TOPICAL DAILY PRN 03/22/17 [History Confirmed 11/23/19] Acyclovir 800 mg PO .QID X 5 DAYS PRN 12/20/17 [History Confirmed 11/23/19] Levocetirizine Dihydrochloride [Xyzal] 5 mg PO BEDTIME 12/20/17 [History Confirmed 11/23/19] Cholecalciferol CAP/TAB(NF) [Vitamin D3 CAP/TAB (NF)] 50,000 units PO WEEKLY [History Confirmed 11/23/19] Methotrexate Sodium/Pf [Methotrexate 1 gm Vial] 0.5 ml SUBCUT WEEKLY 07/07/18 [ History Confirmed 11/23/19] Amoxicillin/Clavulanate TAB* [Augmentin TAB 875*] 875 mg PO BID #20 tab [Rx] Hydroxychloroquine Sulfate [Plaquenil] 2 tab PO BEDTIME 11/23/19 [History Confirmed 11/23/19] PMH/Surg Hx/FS Hx/Imm Hx Previously Healthy: Yes Respiratory History: Asthma Other GI/ History: ulcerative colitis - Surgical History Surgical History: Yes Surgery Procedure, Year, and Place: surgery for detatched retna; silicone buckle. hernia surg. foot surg. ear tubes. tonsilectomy. pin placement left elbow - Family History Known Family History: Positive: Cardiac Disease, Hypertension, Diabetes, Non- Contributory Family History: Dyslipidemia - Social History Alcohol Use: None Substance Use Type: None Smoking Status (MU): Never Smoked Tobacco Have You Smoked in the Last Year: No - Immunization History Most Recent Influenza Vaccination: April 2015 Most Recent Tetanus Shot: unknown Most Recent Pneumonia Vaccination: never Review of Systems All Other Systems Reviewed And Are Negative: Yes Constitutional: Positive: Other - see hpi Eyes: Positive: Negative ENT: Positive: Nasal Discharge - see hpi Respiratory: Positive: Shortness Of Breath, Cough, Other - see hpi Cardiovascular: Positive: Negative Gastrointestinal: Positive: Negative Motor: Positive: Negative Neurovascular: Positive: Negative Musculoskeletal: Positive: Myalgia Neurological/Mental Status: Positive: Headache Psychological: Positive: Negative Is Patient Immunocompromised?: No Physical Exam Triage Information Reviewed: Yes Appearance: No Pain Distress, Well-Nourished, Ill-Appearing - mild Vital Signs: Initial Vital Signs Temp 96 F 11/23/19 17:04 Pulse 91 11/23/19 17:04 Resp 16 11/23/19 17:04 BP 143/85 11/23/19 17:04 Pulse Ox 98 11/23/19 17:04 Vital Signs Reviewed: Yes Eye Exam: Normal Eyes: Positive: Conjunctiva Clear ENT: Positive: Pharynx normal, Nasal drainage Neck: Positive: Supple Respiratory: Positive: Lungs clear, Normal breath sounds, No respiratory distress - Deep breathing brings on dry cough. Cardiovascular: Positive: RRR Musculoskeletal: Positive: Strength Intact, ROM Intact Neurological: Positive: Alert, Muscle Tone Normal Psychological: Positive: Age Appropriate Behavior Skin Exam: Normal Throat Pain/Nasal Course/Dx - Course Course Of Treatment: Patient is potentially immunocompromised being on methotrexate. We discussed viral versus bacterial infections. The patient prefers to be on an antibiotic at this time. She will use her albuterol inhaler for help with her breathing she can use Tylenol for fevers. Covid 19 results are pending. Influenza was negative. Patient did not have a sore throat. Patient is to follow-up with [facility]. She is to be on self-isolation. - Differential Dx/Diagnosis Provider Diagnosis: Bronchitis Discharge ED - Sign-Out/Discharge Documenting (check all that apply): Patient Departure All imaging exams completed and their final reports reviewed: No Studies - Discharge Plan Condition: Stable Disposition: HOME Prescriptions: Amoxicillin/Clavulanate TAB* [Augmentin TAB 875*] 875 mg PO BID #20 tab Patient Education Materials: Acute Bronchitis (ED) Referrals: Obed Garcia MD [Primary Care Provider] - [facility] Dept [Outside] Additional Instructions: PLACE YOURSELF IN HOME ISOLATION. THE [facility] DEPARTMENT WILL CONTACT YOU. CONTACT THEM TOMORROW IF YOU HAVE NOT HEARD FROM THEM. FOLLOW UP WITH YOUR DOCTOR IF NOT COMPLETELY IMPROVED. GO TO THE EMERGENCY DEPARTMENT IF NOT IMPROVED OR WORSE OR ANY QUESTIONS OR CONCERNS. - Billing Disposition and Condition Condition: STABLE Disposition: Home
[2019-11-23 17:19] LABS: Influenza A Molecular Negative (Negative); Influenza B Molecular Negative (Negative)
== END 2019-11-23 17:41 | disposition home or self-care (01) ==
LOC: UCEAST 15:44
DX: J45.909 Unspecified asthma, uncomplicated (principal); R07.89 Other chest pain; M54.6 Pain in thoracic spine; R06.02 Shortness of breath; Z20.828 Contact with and (suspected) exposure to other viral communicable diseases; Z88.1 Allergy status to other antibiotic agents
CPT/HCPCS: 87635; 99212; G0463